=== PATIENT | female | born 1965 | race Hispanic/Latino ===

== ENCOUNTER 2021-04-12 07:05 | Day surgery (SDC) | payer BC ==
[2021-04-08 11:52] LABS: BASOPHILS % (AUTO) 0.4 % (0.0-5.0); EOSINOPHILS % (AUTO) 0.8 % (0.0-8.0); HEMATOCRIT 46.7 % (36-48); LYMPHOCYTES % (AUTO) 27.3 % (21.0-51.0); MEAN CORPUSCULAR HEMOGLOBIN 29.1 pg (27.0-33.0); MEAN CORPUSCULAR VOLUME 88.1 fL (79-99); MONOCYTES % (AUTO) 5.7 % (3.0-13.0); NEUTROPHILS % (AUTO) 65.3 % (40.0-77.0); PLATELET COUNT (AUTO) 252 K/uL (130-400); RED CELL DISTRIBUTION WIDTH 13.2 % (11.0-15.5); WHITE BLOOD COUNT (AUTO) 8.6 K/uL (4.8-10.8)
[2021-04-08 12:03] LABS: ALBUMIN 3.3 g/dL (3.5-5.0); BILIRUBIN,TOTAL 0.9 mg/dL (0.2-1.0); CREATININE 0.8 mg/dL (0.5-1.5); POTASSIUM 3.9 mmol/L (3.5-5.1); TOTAL PROTEIN, SERUM 7.2 g/dL (6.0-8.3)
[2021-04-09 08:44] VITALS: BP 148/68
[2021-04-12] VITALS (20 sets, daily range): BP systolic 110–141; BP diastolic 47–79
[~2021-04-12] VITALS: Ht 157.5 cm; Wt 85.9 kg
[2021-04-12] MEDS: CEFAZOLIN SODIUM 1 GM VIAL IVP SCH ×2 (06:00→09:10)
[~2021-04-12 07:05] MED LIST: 0.9% NACL 500ML IV.SOLN 500 ML IV SCH; INSU3INS10 SQ; PREG100C PO; VALS1TAB81 PO; [UNRECOGNIZED DRUG - CODE] PO
[2021-04-12] MEDS ORDERED: 0.9%NACL 1000ML 1,000 ML IV ONE (07:15)
[2021-04-12] MEDS ORDERED: DEXAMETHASONE SOD PHOSPHATE 10MG/ML 1ML VIAL ONE (07:29)
[2021-04-12] MEDS ORDERED: GLYCOPYRROLATE 1 MG/5 ML SYRINGE ONE (07:29)
[2021-04-12] MEDS ORDERED: LIDOCAINE PF 100MG/5ML (2%) SYRINGE 5ML ONE (07:29)
[2021-04-12] MEDS ORDERED: SUCCINYLCHOLINE 200MG/10ML SYR ONE (07:29)
[2021-04-12] MEDS ORDERED: NEOSTIGMINE 5MG/5ML SYR IV ONE (07:29)
[2021-04-12] MEDS ORDERED: MIDAZOLAM HCL 1 MG/ML 2ML VIAL ONE (07:29)
[2021-04-12] MEDS ORDERED: ROCURONIUM 10MG/1ML SYR 10 MG/ML ML ONE (07:29)
[2021-04-12] MEDS ORDERED: PROPOFOL 10 MG/ML 20ML VIAL IV ONE (07:29)
[2021-04-12] MEDS ORDERED: ONDANSETRON 4MG INJ ONE (07:29)
[2021-04-12] MEDS ORDERED: FENTANYL CITRATE PF 50 MCG/1 ML 2ML VIAL ONE (07:30)
[2021-04-12] MEDS ORDERED: BUPIVACAINE/PF 0.5% 30ML VIAL ONE (07:36)
[2021-04-12] MEDS ORDERED: ROPIVACAINE 0.5% 5MG/ML 30ML IJ ONE (08:53)
[2021-04-12] MEDS ORDERED: EPHEDRINE SULFATE 50 MG/ML AMPULE ONE (09:31)
[2021-04-12] MEDS ORDERED: MEPERIDINE-PF 25 MG/ML SYG ONE ×3 (09:54→11:56)
[2021-04-12] MEDS ORDERED: KETOROLAC 30MG VIAL (30MG/ML) ONE (11:59)
== END 2021-04-12 13:25 | disposition home or self-care (01) ==
LOC: DAH 07:05
PROVIDERS: ATTEND Student in an Organized Health Care Education/Training Program
DX: K43.9 Ventral hernia without obstruction or gangrene (principal); Z20.822 Contact with and (suspected) exposure to COVID-19; I10 Essential (primary) hypertension; K21.9 Gastro-esophageal reflux disease without esophagitis; E11.9 Type 2 diabetes mellitus without complications; E78.5 Hyperlipidemia, unspecified; G47.30 Sleep apnea, unspecified; Z90.710 Acquired absence of both cervix and uterus; Z90.49 Acquired absence of other specified parts of digestive tract; Z98.890 Other specified postprocedural states; Z82.49 Family history of ischemic heart disease and other diseases of the circulatory system; Z83.3 Family history of diabetes mellitus; Z80.9 Family history of malignant neoplasm, unspecified; Z79.4 Long term (current) use of insulin; Z79.899 Other long term (current) drug therapy
CPT/HCPCS: 36415; 80053; 82948; 85025; 87426; 93005; J0330; J0690; J1100; J1885; J2001; J2175; J2250; J2405; J2704; J2710; J2795; J3010; J3490; J7030; J7120

== ENCOUNTER → 2022-04-22 | Outpatient (CLI) | payer BC ==
[~2022-04-22] MED LIST changes: -0.9% NACL 500ML IV.SOLN 500 ML IV SCH
[2022-04-22 08:49] LABS: INR 0.95 (0.85-1.15); PROTHROMBIN TIME 10.4 SEC (9.6-11.6)
[2022-04-22 08:50] LABS: PARTIAL THROMBOPLASTIN TIME 30.7 SEC (26.3-35.5)
== END | disposition home or self-care (01) ==
LOC: RAH 08:04
PROVIDERS: ATTEND Internal Medicine
DX: E04.2 Nontoxic multinodular goiter (principal); Z79.01 Long term (current) use of anticoagulants
CPT/HCPCS: 10005; 36415; 76942; 85610; 85730

== ENCOUNTER → 2022-07-26 | Outpatient (CLI) | payer BC ==
[2022-07-26 15:30] LABS: BASOPHILS % (AUTO) 0.6 % (0.0-5.0); EOSINOPHILS % (AUTO) 1.5 % (0.0-8.0); HEMATOCRIT 45.6 % (36-48); LYMPHOCYTES % (AUTO) 26.9 % (21.0-51.0); MEAN CORPUSCULAR HEMOGLOBIN 29.6 pg (27.0-33.0); MEAN CORPUSCULAR HGB CONC 33.1 g/dL (32.0-36.0); MEAN CORPUSCULAR VOLUME 89.4 fL (79-99); MONOCYTES % (AUTO) 6.5 % (3.0-13.0); NEUTROPHILS % (AUTO) 64.2 % (40.0-77.0); PLATELET COUNT (AUTO) 279 K/uL (130-400); RED CELL DISTRIBUTION WIDTH 12.4 % (11.0-15.5); WHITE BLOOD COUNT (AUTO) 8.8 K/uL (4.8-10.8)
[2022-07-26 15:45] LABS: ALBUMIN 3.5 g/dL (3.5-5.0); CREATININE 0.8 mg/dL (0.5-1.5); POTASSIUM 4.4 mmol/L (3.5-5.1); TOTAL PROTEIN, SERUM 7.5 g/dL (6.0-8.3)
== END | disposition home or self-care (01) ==
LOC: LAB 15:00
PROVIDERS: ATTEND Internal Medicine Critical Care Medicine
DX: G25.81 Restless legs syndrome (principal)
CPT/HCPCS: 36415; 80053; 82728; 85025